=== PATIENT | male | born 1990 | race Caucasian/White ===

== ENCOUNTER → 2017-02-09 | Day surgery (SDC) | payer BC ==
[~2017-02-09] VITALS: Ht 182.9 cm; Wt 86.8 kg
[~2017-02-09] MED LIST: CIPRO500 MG PO
== END ==
LOC: GPOC 02-07 16:00 → GEND 08:27 → GPOC 10:00
PROC: 0DBP8ZX Excision of Rectum, Via Natural or Artificial Opening Endoscopic, Diagnostic (ICD-10-PCS; principal; 2017-02-09)
PROC: 0DBB8ZX Excision of Ileum, Via Natural or Artificial Opening Endoscopic, Diagnostic (ICD-10-PCS; 2017-02-09)
PROC: 06LY4CC Occlusion of Hemorrhoidal Plexus with Extraluminal Device, Percutaneous Endoscopic Approach (ICD-10-PCS; 2017-02-09)
DX: K64.1 Second degree hemorrhoids (principal); Z98.818 Other dental procedure status; Z88.1 Allergy status to other antibiotic agents
CPT/HCPCS: J2001; J7030